=== PATIENT | male | born 1960 | race Hispanic/Latino ===

== ENCOUNTER 2016-09-08 11:23 | Emergency (ER) | payer OTHER ==
[2016-09-08 11:31] VITALS: BMI 29.8
[2016-09-08 11:36] VITALS: TEMP 97.9
[2016-09-08] MEDS ORDERED: Sodium Chloride 0.9% 1,000 ML IV STA (11:46)
--- NOTE | 2016-09-08 11:51 | ED PDOC ---
Arrival/HPI - General Chief Complaint: Male Genitourinary Time Seen by Provider: 09/08/16 11:46 Historian: Patient - History of Present Illness Narrative History of Present Illness (Text): 09/08/16 11:40 Cristobal Acosta is a 55 year old male, whose past medical history includes kidney stones, who presents to the emergency department complaining of dysuria for 10 days. Patient describes experiencing a burning sensation while urinating. Patient also indicates that he feels right-sided flank pain for 4 days. Patient' s notes that patient has experienced kidney stones before but patient is unsure if symptoms feel similar. Patient endorses he took 2 tablets of Augmentin yesterday and today. Patient denies any fever, vomiting, or any other complaint at this time. PMD: Dr. Francie Garcia Time/Duration: > week Symptom Onset: Gradual Symptom Course: Unchanged Severity Level: Mild Activities at Onset: Light Context: Home Past Medical History - Provider Review Nursing Documentation Reviewed: Yes - Infectious Disease Hx of Infectious Diseases: None - Cardiac Hx Cardiac Disorders: No - Pulmonary Hx Respiratory Disorders: No - Neurological Hx Neurological Disorder: No - HEENT Hx HEENT Disorder: No - Renal Hx Renal Disorder: Yes Hx Kidney Stones: Yes (x2) Other/Comment: one kidney stone surgically removed, one passed on its own - Endocrine/Metabolic Hx Endocrine Disorders: No - Hematological/Oncological Hx Blood Disorders: No - Integumentary Hx Dermatological Disorder: No - Musculoskeletal/Rheumatological Hx Falls: No - Gastrointestinal Hx Gastrointestinal Disorders: No - Genitourinary/Gynecological Hx Genitourinary Disorders: No - Psychiatric Hx Psychophysiologic Disorder: No Hx Substance Use: No - Surgical History Other/Comment: kidney stone removal - Anesthesia Hx Anesthesia: Yes Hx Anesthesia Reactions: No Family/Social History - Physician Review Nursing Documentation Reviewed: Yes Family/Social History: No Known Family HX Smoking Status: Never Smoked Hx Alcohol Use: No Hx Substance Use: No Allergies/Home Meds Allergies/Adverse Reactions: Allergies No Known Allergies Allergy (Verified 09/08/16 11:30) Home Medications: Home Meds Medication Instructions Recorded Confirmed Amoxicillin/Clavulanate [Augmentin 1 tab PO BID 09/08/16 09/08/16 500 MG-125 MG Tab] Ibuprofen [Advil] 200 g PO PRN PRN 09/08/16 09/08/16 Review of Systems - Physician Review All systems were reviewed & negative as marked: Yes - Review of Systems Constitutional: absent: Fevers, Night Sweats Eyes: absent: Vision Changes ENT: absent: Hearing Changes Respiratory: absent: SOB, Cough Cardiovascular: absent: Chest Pain Gastrointestinal: absent: Abdominal Pain Genitourinary Male: Dysuria (burning) Musculoskeletal: Back Pain (right-sided flank pain) Skin: absent: Rash, Pruritis Neurological: absent: Headache, Dizziness Endocrine: absent: Diaphoresis, Polyuria Physical Exam - Physical Exam Narrative Physical Exam (Text): Constitutional: No acute distress. Head: Normocephalic. Atraumatic. Eyes: PERRL. ENT: Moist mucous membranes. Neck: Supple. Cardiovascular: Regular rate. Chest: No tenderness. Respiratory: Clear to auscultation bilaterally. GI: Soft. Nontender. Nondistended. Exam: No testicular tenderness. No swelling. No discharge. Positive Circumcision. Back: No CVA tenderness. Musculoskeletal: No tenderness or swelling of extremities. Skin: No rash. Neurologic: Alert, no focal deficit. Vital Signs Reviewed: Yes Vital Signs Temp Pulse Resp BP Pulse Ox 09/08/16 14:45 82 16 128/82 98 09/08/16 11:35 97.9 F 80 19 124/73 99 Temperature: Afebrile Blood Pressure: Normal Pulse: Regular Respiratory Rate: Normal Appearance: Positive for: Well-Appearing, Non-Toxic, Comfortable Pain Distress: None Mental Status: Positive for: Alert and Oriented X 3 Medical Decision Making ED Course and Treatment: 09/08/16 11:40 Impression: 55 year old male complaining of dysuria for 10 days and right-sided flank pain for 4 days. Differential Diagnosis included but are not limited to: UTI vs. Kidney stone vs. STD Plan: -- Abdomen and Pelvis CT -- Urine Culture and Urinalysis -- Labs -- IV Fluids -- Reassess and disposition Prior Visits: Notes and results from previous visits were reviewed. Patient last seen in the ED on 01/17/15 for left-sided flank pain for 1 day. Patient was admitted to hospitalist care for further evaluation. Progress Notes: 09/08/16 14:09 CT Abdomen and Pelvis with contrast Dictator : Sascha Baker MD FINDINGS: LOWER THORAX:Unremarkable. LIVER:Unremarkable. No gross lesion or ductal dilatation. GALLBLADDER AND BILE DUCTS:Unremarkable. PANCREAS:Unremarkable. No gross lesion or ductal dilatation. SPLEEN:Unremarkable. ADRENALS:Unremarkable. No mass. KIDNEYS AND URETERS:There is a 3 mm stone in the left distal ureter near the UVJ. There is no evidence of hydronephrosis. There is a nonobstructing 3 mm stone in the right kidney VASCULATURE:Unremarkable. No aortic aneurysm. BOWEL:Unremarkable. No obstruction. No gross mural thickening. APPENDIX:Normal appendix. PERITONEUM:Unremarkable. No free fluid. No free air. LYMPH NODES:Unremarkable. No enlarged lymph nodes. BLADDER:Unremarkable. REPRODUCTIVE:Unremarkable. BONES:No acute fracture. OTHER FINDINGS:None. IMPRESSION: 3 mm stone in the left distal ureter without hydronephrosis. 3 mm nonobstructing stone in the right kidney UA shows no evidence of UTI. Urology follow up, return to ER for worsening pain , fever, chills, dyspnea, or any other problem. - Lab Interpretations Lab Results: 09/08/16 12:00 09/08/16 12:00 Lab Results 09/08/16 12:00: Sodium 139, Potassium 4.2, Chloride 105, Carbon Dioxide 26, Anion Gap 12, BUN 27 H, Creatinine 0.9, Est GFR ( Amer) > 60, Est GFR ( Non-Af Amer) > 60, Random Glucose 92, Calcium 9.1, Total Bilirubin 0.6, AST 23, ALT 35, Alkaline Phosphatase 75, Total Protein 6.2, Albumin 3.8, Globulin 2.4, Albumin/Globulin Ratio 1.6 09/08/16 12:00: Urine Color Yellow, Urine Appearance Clear, Urine pH 6.0, Ur Specific Hessel >= 1.030, Urine Protein 30 H, Urine Glucose (UA) Negative, Urine Ketones Negative, Urine Blood Large H, Urine Nitrate Negative, Urine Bilirubin Negative, Urine Urobilinogen 0.2, Ur Leukocyte Esterase Negative, Urine RBC Tntc, Urine WBC 0 - 2, Ur Epithelial Cells 0 - 2, Urine Bacteria Few 09/08/16 12:00: WBC 3.7 L D, RBC 5.13, Hgb 13.9 L, Hct 40.9 L, MCV 79.7 L, MCH 27.1, MCHC 34.0, RDW 13.6, Plt Count 96 L, MPV 10.1, Gran % 49.9 L, Lymph % ( Auto) 36.8 H, [place] % (Auto) 11.6 H, Eos % (Auto) 1.4 L, Baso % (Auto) 0.3, Gran # 1.85, Lymph # 1.4, [place] # 0.4, Eos # 0.1, Baso # 0.01 I have reviewed the lab results: Yes - RAD Interpretation Radiology Orders: 09/08/16 11:53 ABD & PELVIS IV CONTRAST ONLY [CT] Stat - Medication Orders Current Medication Orders: Discontinued Medications Sodium Chloride (Sodium Chloride 0.9%) 1,000 mls @ 999 mls/hr IV .Q1H1M STA Stop: 09/08/16 12:46 Last Admin: 09/08/16 12:09 Dose: 999 mls/hr Iohexol (Omnipaque 350 150 Ml) Confirm Administered Dose 150 ml .ROUTE .STK-MED ONE Stop: 09/08/16 13:09 Ketorolac Tromethamine (Toradol) 30 mg IVP STAT STA Stop: 09/08/16 14:08 Last Admin: 09/08/16 14:43 Dose: 30 mg - Scribe Statement The provider has reviewed the documentation as recorded by the Arlette Hedrick Provider Scribe Attestation: All medical record entries made by the Arlette were at my direction and personally dictated by me. I have reviewed the chart and agree that the record accurately reflects my personal performance of the history, physical exam, medical decision making, and the department course for this patient. I have also personally directed, reviewed, and agree with the discharge instructions and disposition. Disposition/Present on Arrival - Present on Arrival Any Indicators Present on Arrival: No History of DVT/PE: No History of Uncontrolled Diabetes: No Urinary Catheter: No History of Decub. Ulcer: No History Surgical Site Infection Following: None - Disposition Have Diagnosis and Disposition been Completed?: Yes Diagnosis: Kidney stone Disposition: HOME/ ROUTINE Disposition Time: 14:07 Patient Plan: Discharge Condition: STABLE Discharge Instructions (ExitCare): Kidney Stones (ED) Prescriptions: Ibuprofen [Motrin] 600 mg PO Q6 #25 tab Ondansetron ODT [Zofran ODT] 4 mg PO Q8 #12 odt Tamsulosin [Flomax] 0.4 mg PO DAILY #5 cap Referrals: Jd Matos MD [Staff Provider] - Follow up with primary
[2016-09-08 12:30] LABS: BASO # 0.01 K/mm3 (0.0-2.0); BASO % 0.3 % (0.0-3.0); EOS # 0.1 (0.0-0.7); EOS % 1.4 % (1.5-5.0); GRAN # 1.85 (1.4-6.5); GRAN % 49.9 % (50.0-68.0); HEMOGLOBIN 13.9 gm/dL (14.0-18.0); LYMPH # 1.4 (1.2-3.4); LYMPH % 36.8 % (22.0-35.0); MEAN CELL VOLUME 79.7 fL (80.0-105.0); MEAN CORPUSCULAR HEMOGLOBIN 27.1 pg (25.0-35.0); MEAN PLATELET VOLUME 10.1 fl (7.0-11.0); MONO # 0.4 (0.1-0.6); MONO % 11.6 % (1.0-6.0); PLATELET COUNT 96 10^3/uL (120.0-450.0); RBC 5.13 10^6/uL (3.5-6.1); RED CELL DISTRIBUTION WIDTH 13.6 % (11.5-14.5); WHITE BLOOD COUNT 3.7 10^3/ul (4.5-11.0)
[2016-09-08 12:31] LABS: URINE BILIRUBIN NEGATIVE (NEGATIVE); URINE BLOOD LARGE (NEGATIVE); URINE GLUCOSE (UA) NEGATIVE (NEGATIVE); URINE LEUKOCYTE ESTERASE NEGATIVE Leu/uL (NEGATIVE); URINE NITRATE NEGATIVE (NEGATIVE); URINE PROTEIN 30 mg/dL (<30 mg/dL); URINE UROBILINOGEN 0.2 E.U./dL (<1 E.U./dL)
[2016-09-08 12:36] LABS: URINE APPEARANCE CLEAR (CLEAR); URINE COLOR YELLOW (YELLOW)
[2016-09-08 12:40] LABS: ALB/GLOB RATIO 1.6 (1.1-1.8); ALBUMIN 3.8 g/dL (3.0-4.8); ALT/SGPT 35 U/L (7-56); AST/SGOT 23 U/L (15-59); BLOOD UREA NITROGEN 27 mg/dL (7-21); CALCIUM 9.1 mg/dL (8.4-10.5); GFR AFRICAN-AMERICAN > 60; GFR NON-AFRICAN AMERICAN > 60
[2016-09-08 12:43] LABS: URINE BACTERIA FEW (NEG); URINE EPITHELIAL CELLS 0 - 2 /hpf (0-5); URINE RBC TNTC /hpf (0-2); URINE WBC 0 - 2 /hpf (0-6)
--- NOTE | 2016-09-08 14:05 | CT ---
PROCEDURE: CT Abdomen and Pelvis with contrast HISTORY: dysuria, flank pain COMPARISON: None. TECHNIQUE: Contrast dose: 150 cc of Omni 350 Radiation dose: Total exam DLP = 660 mGy-cm. This CT exam was performed using one or more of the following dose reduction techniques: Automated exposure control, adjustment of the mA and/or kV according to patient size, and/or use of iterative reconstruction technique. FINDINGS: LOWER THORAX: Unremarkable. LIVER: Unremarkable. No gross lesion or ductal dilatation. GALLBLADDER AND BILE DUCTS: Unremarkable. PANCREAS: Unremarkable. No gross lesion or ductal dilatation. SPLEEN: Unremarkable. ADRENALS: Unremarkable. No mass. KIDNEYS AND URETERS: There is a 3 mm stone in the left distal ureter near the UVJ. There is no evidence of hydronephrosis. There is a nonobstructing 3 mm stone in the right kidney VASCULATURE: Unremarkable. No aortic aneurysm. BOWEL: Unremarkable. No obstruction. No gross mural thickening. APPENDIX: Normal appendix. PERITONEUM: Unremarkable. No free fluid. No free air. LYMPH NODES: Unremarkable. No enlarged lymph nodes. BLADDER: Unremarkable. REPRODUCTIVE: Unremarkable. BONES: No acute fracture. OTHER FINDINGS: None. IMPRESSION: 3 mm stone in the left distal ureter without hydronephrosis. 3 mm nonobstructing stone in the right kidney
[2016-09-08 14:48] VITALS: BP 128/82; PULSE 82; RESP 16; O2SAT 98
== END 2016-09-08 14:48 | disposition home or self-care (01) ==
LOC: ED 11:23
DX: N20.0 Calculus of kidney (principal)
CPT/HCPCS: 74177; 80053; 81001; 85025; 87086; 96374; 99284; J1885; J7040; Q9967

== ENCOUNTER 2017-10-06 19:39 | Observation (INO) | payer OTHER ==
[2017-10-06 19:49] VITALS: BMI 29.9
--- NOTE | 2017-10-06 21:03 | ED PDOC ---
Arrival/HPI <Franck Montana - Last Filed: 10/06/17 22:57> - General Historian: Associate Publisher (History provided by remote audio translation service, shingler number [id number]) EM Caveat: Language Barrier ([place] language Croatian) - History of Present Illness Time/Duration: 24 hours Symptom Onset: Sudden Symptom Course: Unchanged Quality: Burning Severity Level: 3 Activities at Onset: Rest <Miguel Angel Garvey - Last Filed: 10/07/17 05:38> - General Chief Complaint: Chest Pain Time Seen by Provider: 10/06/17 19:40 - History of Present Illness Narrative History of Present Illness (Text): PGY-[address] [place] Mr. Jain is a 56 year old male who presents with pain in his chest and arm. The patient states that he woke up this morning with pain in his left chest/ axilla and that later on in the day the pain began to move down his arm to the elbow. The pain is a burning pain and is worse when lifting himself out of a bed or chair with his arms, better at rest. He did not take any medication for the pain. The patient also states he has noticed having some difficulty catching a deep breath. The patient states he had an echocardiogram done about 5-6 months ago for difficulty breathing which was normal. 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 Pt denies having any sick contacts, recent history of travel or hospitalization. The patient does also state he has been having some pain in his L flank today similar to when he has had kidney stones in the past, though this is not his reason for presenting to the ED. He notes mild burning with urination, but urine is yellow with no blood. Pt denies any back pain, neck pain, fevers, chills, nausea, vomiting, pleuritic pain. Patient has never smoked, does not drink alcohol, does not taking any medications for high blood pressure other cardiac issues. (Miguel Angel Garvey) Past Medical History - Provider Review Nursing Documentation Reviewed: Yes - Infectious Disease Hx of Infectious Diseases: None - Cardiac Hx Cardiac Disorders: No - Pulmonary Hx Respiratory Disorders: No - Neurological Hx Neurological Disorder: No - HEENT Hx HEENT Disorder: No - Renal Hx Renal Disorder: Yes Hx Kidney Stones: Yes (x2) Other/Comment: one kidney stone surgically removed, one passed on its own - Endocrine/Metabolic Hx Endocrine Disorders: No - Hematological/Oncological Hx Blood Disorders: No - Integumentary Hx Dermatological Disorder: No - Musculoskeletal/Rheumatological Hx Falls: No - Gastrointestinal Hx Gastrointestinal Disorders: No - Genitourinary/Gynecological Hx Genitourinary Disorders: No - Psychiatric Hx Psychophysiologic Disorder: No Hx Substance Use: No - Surgical History Other/Comment: kidney stone removal - Anesthesia Hx Anesthesia: Yes Hx Anesthesia Reactions: No <Miguel Angel Garvey - Last Filed: 10/07/17 05:38> Family/Social History - Physician Review Nursing Documentation Reviewed: Yes Family/Social History: Unknown Family HX Smoking Status: Never Smoked Hx Alcohol Use: No Hx Substance Use: No <Miguel Angel Garvey - Last Filed: 10/07/17 05:38> Allergies/Home Meds <Franck Montana - Last Filed: 10/06/17 22:57> <Miguel Angel Garvey - Last Filed: 10/07/17 05:38> Allergies/Adverse Reactions: Allergies No Known Allergies Allergy (Verified 10/06/17 19:49) Home Medications: Home Meds Medication Instructions Recorded Confirmed Amoxicillin/Clavulanate [Augmentin 1 tab PO BID 09/08/16 09/08/16 500 MG-125 MG Tab] Ibuprofen [Advil] 200 g PO PRN PRN 09/08/16 09/08/16 Review of Systems - Review of Systems Constitutional: Normal. absent: Fatigue, Fevers Eyes: Normal. absent: Vision Changes, Photophobia ENT: Normal. absent: Sore Throat, Rhinorrhea Respiratory: Other (+some difficulty taking a deep breath). absent: Cough, Sputum, Wheezing Cardiovascular: Chest Pain. absent: Palpitations, Calf Pain, FRIEDMAN Gastrointestinal: Normal. absent: Abdominal Pain, Constipation, Diarrhea Genitourinary Male: Dysuria. absent: Frequency, Hematuria Musculoskeletal: Other (+Pain chest/arm). absent: Back Pain, Neck Pain Skin: Normal. absent: Rash, Pruritis Neurological: Normal. absent: Headache, Dizziness Psychiatric: Normal. absent: Anxiety, Depression <Miguel Angel Garvey - Last Filed: 10/07/17 05:38> Physical Exam - Systems Exam Head: Present: Atraumatic, Normocephalic Pupils: Present: PERRL Extroacular Muscles: Present: EOMI Conjunctiva: Present: Normal Mouth: Present: Moist Mucous Membranes Pharnyx: Present: Normal. No: ERYTHEMA, EXUDATE Nose (External): Present: Atraumatic Respiratory/Chest: Present: Clear to Auscultation, Good Air Exchange, Tender to Palpation (+Reproducible pain in axilla), Other (Not reproducible with lifting arms overhead). No: Respiratory Distress, Accessory Muscle Use, Wheezes, Decreased Breath Sounds, Retracting Cardiovascular: Present: Regular Rate and Rhythm, Normal S1, S2, Peripheal Pulses Present. No: Murmurs, Tachycardic, Bradycardic Abdomen: Present: Normal Bowel Sounds. No: Tenderness, Distention, Peritoneal Signs, Rebound, Guarding Back: Present: Normal Inspection. No: CVA Tenderness, Paraspinal Tenderness Upper Extremity: Present: Normal Inspection, Normal ROM, NORMAL PULSES. No: Cyanosis, Edema, Tenderness, Swelling, Erythema Lower Extremity: Present: Normal Inspection, NORMAL PULSES. No: Edema, CALF TENDERNESS Neurological: Present: GCS=15, CN II-XII Intact, Speech Normal, Motor Func Grossly Intact, Normal Sensory Function Skin: Present: Warm, Dry, Normal Color. No: Rashes Psychiatric: Present: Alert, Oriented x 3, Normal Insight, Normal Concentration <Miguel Angel Garvey - Last Filed: 10/07/17 05:38> Vital Signs Temp Pulse Resp BP Pulse Ox 10/06/17 23:15 98.2 F 65 16 122/69 100 10/06/17 21:51 66 16 119/66 100 10/06/17 19:50 98.2 F 68 16 128/62 100 Medical Decision Making - Lab Interpretations I have reviewed the lab results: Yes - RAD Interpretation Clinical Trials Assistant: ED Physician - EKG Interpretation Interpreted by ED Physician: Yes Type: 12 lead EKG <Franck Montana - Last Filed: 10/06/17 22:57> - Lab Interpretations I have reviewed the lab results: Yes - RAD Interpretation Clinical Trials Assistant: ED Physician - EKG Interpretation Interpreted by ED Physician: Yes <Miguel Angel Garvey - Last Filed: 10/07/17 05:38> ED Course and Treatment: Impression: Pt seen and evaluated with medical staff physician. Aware and agree with HPI, clinical findings, plan, and management. Pt, whose past medical history includes kidney stones, presented for left-sided chest pain radiating down his left arm and some shortness of breath. Plan: -- EKG -- Chest X-ray -- Labs, cardiac enzymes, D-dimer -- UA -- Reassess and disposition 10/06/17 22:03 Case discussed with medical staff physician international account manager, who is aware and agrees with plan. 10/06/17 22:[address] Lynnette Webb, who is aware and agrees with plan. Accepts pt in to hospitalist service. Pt will go to remote telemetry observation for chest pain. (Franck Montana) 1) MSK chest pain, rule out IN, PE: * EKG * CBC, CMP, Coags, D-dimer * CXR portable * CK/Troponins * UA (Miguel Angel Garvey) - Lab Interpretations Narrative Lab Interpretation (Text): 10/06/17 21:34 CBC, CMP, Coags- no acute abnormalities. Troponin negative x1, D-dimer negative , coags WNL UA pending (Miguel Angel Garvey) Lab Results: 10/06/17 20:54 10/06/17 20:54 Lab Results 10/06/17 20:54: PT 11.3, INR 0.99, APTT 30.5, D-Dimer, Quantitative < 200 10/06/17 20:54: Sodium 142, Potassium 4.0, Chloride 105, Carbon Dioxide 29, Anion Gap 12, BUN 18, Creatinine 1.0, Est GFR ( Amer) > 60, Est GFR (Non- Af Amer) > 60, Random Glucose 95, Calcium 9.1, Magnesium 2.1, Total Bilirubin 0.5, AST 28, ALT 28, Alkaline Phosphatase 69, Lactate Dehydrogenase 558, Total Creatine Kinase 109, Troponin I < 0.01, Total Protein 6.4, Albumin 4.0, Globulin 2.4, Albumin/Globulin Ratio 1.7 10/06/17 20:54: WBC 4.9 D, RBC 5.05, Hgb 13.6 L, Hct 39.3 L, MCV 77.8 L, MCH 26.9, MCHC 34.6, RDW 13.7, Plt Count 117 L, MPV 10.1, Gran % 44.7 L, Lymph % ( Auto) 44.9 H, [place] % (Auto) 8.8 H, Eos % (Auto) 1.4 L, Baso % (Auto) 0.2, Gran # 2.19, Lymph # (Auto) 2.2, [place] # (Auto) 0.4, Eos # (Auto) 0.1, Baso # (Auto) 0.01 - RAD Interpretation Narrative RAD Interpretations (Text): CXR: No evidence of acute pathology 10/06/17 22:03 (Miguel Angel Garvey) Radiology Orders: 10/06/17 20:45 CHEST PORTABLE [RAD] Stat - EKG Interpretation EKG Interpretation (Text): 10/06/17 21:18 Normal sinus rhythm, no ST or T changes, normal EKG (Miguel Angel Garvey) - Medication Orders Current Medication Orders: Acetaminophen (Tylenol 325mg Tab) 650 mg PO Q6H PRN PRN Reason: Pain, moderate (4-7) Al Hydrox/Mg Hydrox/Simethicone (Maalox Plus 30 Ml) 30 ml PO DAILY PRN PRN Reason: Indigestion / Heartburn Aspirin (Ecotrin) 81 mg PO DAILY JACINTO Enoxaparin Sodium (Lovenox) 40 mg SC DAILY JACINTO PRN Reason: Protocol Pantoprazole Sodium (Protonix Inj) 40 mg IVP DAILY [facility] / FRANCHISE SALES MANAGER / Resident Statement / has reviewed & agrees with the documentation as recorded. ADOLFO has examined the patient and agrees with the treatment plan. <Franck Montana - Last Filed: 10/06/17 22:57> Disposition/Present on Arrival <Franck Montana - Last Filed: 10/06/17 22:57> - Present on Arrival Any Indicators Present on Arrival: No History of DVT/PE: No History of Uncontrolled Diabetes: No Urinary Catheter: No History of Decub. Ulcer: No History Surgical Site Infection Following: None - Disposition Have Diagnosis and Disposition been Completed?: Yes Disposition Time: 05:36 <Miguel Angel Garvey - Last Filed: 10/07/17 05:38> - Disposition Diagnosis: Chest pain Disposition: HOSPITALIZED Condition: IMPROVED
[2017-10-06 21:10] LABS: BASO # 0.01 K/mm3 (0.0-2.0); BASO % 0.2 % (0.0-3.0); EOS # 0.1 (0.0-0.7); EOS % 1.4 % (1.5-5.0); GRAN # 2.19 (1.4-6.5); GRAN % 44.7 % (50.0-68.0); HEMOGLOBIN 13.6 g/dL (14.0-18.0); LYMPH # 2.2 (1.2-3.4); LYMPH % 44.9 % (22.0-35.0); MEAN CELL VOLUME 77.8 fl (80.0-105.0); MEAN CORPUSCULAR HEMOGLOBIN 26.9 pg (25.0-35.0); MEAN CORPUSCULAR HGB CONC 34.6 g/dl (31.0-37.0); MEAN PLATELET VOLUME 10.1 fl (7.0-11.0); MONO # 0.4 (0.1-0.6); MONO % 8.8 % (1.0-6.0); RBC 5.05 10^6/uL (3.5-6.1); RED CELL DISTRIBUTION WIDTH 13.7 % (11.5-14.5); WHITE BLOOD COUNT 4.9 10^3/ul (4.5-11.0)
[2017-10-06 21:15] LABS: ALB/GLOB RATIO 1.7 (1.1-1.8); CALCIUM 9.1 mg/dL (8.4-10.5); GFR AFRICAN-AMERICAN > 60; GFR NON-AFRICAN AMERICAN > 60
[2017-10-06 21:18] LABS: INR 0.99; PARTIAL THROMBOPLASTIN TIME 30.5 Seconds (25.1-36.5); PROTHROMBIN TIME 11.3 SECONDS (9.4-12.5)
[2017-10-06 21:23] LABS: D DIMER < 200 ng/mlDDU (0-243)
[2017-10-06 21:27] LABS: TROPONIN I < 0.01 ng/mL
[2017-10-06 21:28] LABS: ALT/SGPT 28 U/L (7-56); AST/SGOT 28 U/L (17-59); BLOOD UREA NITROGEN 18 mg/dL (7-21)
[2017-10-06] MEDS ORDERED: Alum-Mag Hydrox-Simethicone Susp (30 mL) PO PRN (23:07)
--- NOTE | 2017-10-07 00:17 | CP.PCM.HP ---
History of Present Illness - History of Present Illness History of Present Illness: Sanna Sharp D.O. PGY-1, HISTORY & PHYSICAL NOTE FOR HOSPITALIST TEAM CC: Chest pain since yesterday afternoon 56 y/o kiswahili speaking M with no significant pmhx presents to ED with pain in chest & L arm. The patient states that he woke up this morning with 5/10 severity pain in his left chest/axilla and that later on in the day the pain began to move down his arm to the elbow. The pain is a burning pain thats worse when lifting himself out of a bed or chair with his arms, better at rest. He also states the pain is worse upon deep palpation. He did not take any medication for the pain. The patient also states he has noticed having some difficulty catching a deep breath. The patient states he had an echocardiogram done about 5-6 months ago for difficulty breathing which was normal. 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 Pt denies having any sick contacts, recent history of travel or hospitalization. The patient does also states he has been having some pain in his L flank today similar to when he has had kidney stones in the past, though this is not his reason for presenting to the ED. He also endorses epigastric abdominal pain, but denies cough, bitterness taste in his mouth or regurgitation. He notes mild burning with urination, but urine is yellow with no blood. Patient has never smoked, does not drink alcohol, does not taking any medications for hypertension other cardiac issues. Pt denies any fevers, chills, cough, headache, dizziness, diophoresis, back pain, neck pain, nausea, vomiting, pleuritic pain. PMD: Dr. Garcia PMH: Nephrolithiasis PSH: Denies SH: Denies smoking, alcohol, illicit drug use FH: Father- denies, Mother- DM2 Meds: Denies Present on Admission - Present on Admission Any Indicators Present on Admission: No Review of Systems - Review of Systems All systems: reviewed and no additional remarkable complaints except (as per HPI , otherwise negative) Past Patient History - Infectious Disease Hx of Infectious Diseases: None - Past Social History Smoking Status: Never Smoked - CARDIAC Hx Cardiac Disorders: No - PULMONARY Hx Respiratory Disorders: No - NEUROLOGICAL Hx Neurological Disorder: No - HEENT Hx HEENT Problems: No - RENAL Hx Chronic Kidney Disease: Yes Hx Kidney Stones: Yes (x2) Other/Comment: one kidney stone surgically removed, one passed on its own - ENDOCRINE/METABOLIC Hx Endocrine Disorders: No - HEMATOLOGICAL/ONCOLOGICAL Hx Blood Disorders: No - INTEGUMENTARY Hx Dermatological Problems: No - MUSCULOSKELETAL/RHEUMATOLOGICAL Hx Falls: No - GASTROINTESTINAL Hx Gastrointestinal Disorders: No - GENITOURINARY/GYNECOLOGICAL Hx Genitourinary Disorders: No - PSYCHIATRIC Hx Psychophysiologic Disorder: No Hx Substance Use: No - SURGICAL HISTORY Other/Comment: kidney stone removal - ANESTHESIA Hx Anesthesia: Yes Hx Anesthesia Reactions: No Meds Allergies/Adverse Reactions: Allergies Allergy/AdvReac Type Severity Reaction Status Date / Time No Known Allergies Allergy Verified 10/06/17 19:49 Physical Exam - Constitutional Appears: Well, Non-toxic, No Acute Distress - Head Exam Head Exam: ATRAUMATIC, NORMAL INSPECTION - Eye Exam Eye Exam: EOMI, Normal appearance - ENT Exam ENT Exam: Mucous Membranes Moist, Normal Exam - Neck Exam Neck exam: Positive for: Normal Inspection - Respiratory Exam Respiratory Exam: Clear to Auscultation Bilateral, NORMAL BREATHING PATTERN - Cardiovascular Exam Cardiovascular Exam: REGULAR RHYTHM, +S1, +S2 Additional comments: Tenderness to palpation noted along L sternal border, and along 4th/5th midclavicular ribs to mixaxillary region. - GI/Abdominal Exam GI & Abdominal Exam: Soft, Tenderness (mild epigastric tenderness to deep palpation). absent: Distended, Rebound, Rigid - Extremities Exam Extremities exam: Positive for: normal inspection. Negative for: calf tenderness Additional comments: musculoskeletal tenderness along L bicep - Neurological Exam Neurological exam: Alert, CN II-XII Intact, Oriented x3 - Psychiatric Exam Psychiatric exam: Normal Affect, Normal Mood - Skin Skin Exam: Dry, Intact, Warm Results - Vital Signs Recent Vital Signs: Last Vital Signs Temp 98.2 F 10/06/17 23:29 Pulse 62 10/06/17 23:29 Resp 16 10/06/17 23:29 BP 122/69 10/06/17 23:29 Pulse Ox 100 10/06/17 23:29 - Labs Result Diagrams: 10/06/17 20:54 10/06/17 20:54 Labs: Laboratory Results - last 24 hr 10/06/17 23:00 Phosphorus 2.9 Assessment & Plan - Assessment and Plan (Free Text) Assessment: 56 y/o M with pmhx of nephrolithiasis admitted for chest pain to rule out ACS Plan: Chest Pain Likely secondary to musculoskeletal dysfunction Rule out ACS. Trend troponin q6H, trend EKG q6H, F/u Lipid Panel F/u Hemoglobin A1C Consult Cardiology: Dr. Levy Start acetaminophen 650mg q6H prn Start aspirin 81mg daily Heart healthy diet Abdominal pain Likely secondary to gastritis Start Maalox 30mL daily prn Hx of Renal calculi Currently asymptomatic monitor for signs of progression DVT/GI ppx: Lovenox/Protonix Case seen, discussed and reviewed with attending physician, Dr. Webb
[2017-10-07 00:32] LABS: PH,URINE 6.5 (4.7-8.0); URINE BILIRUBIN NEGATIVE (NEGATIVE); URINE BLOOD NEGATIVE (NEGATIVE); URINE GLUCOSE (UA) NEGATIVE (NEGATIVE); URINE LEUKOCYTE ESTERASE NEGATIVE Leu/uL (NEGATIVE); URINE PROTEIN NEGATIVE mg/dL (<30 mg/dL); URINE UROBILINOGEN 0.2 E.U./dL (<1 E.U./dL)
[2017-10-07 00:34] LABS: URINE APPEARANCE CLEAR (CLEAR); URINE COLOR YELLOW (YELLOW)
[2017-10-07 07:10] LABS: BASO # 0.01 K/mm3 (0.0-2.0); BASO % 0.2 % (0.0-3.0); EOS # 0.1 (0.0-0.7); EOS % 1.8 % (1.5-5.0); GRAN # 1.85 (1.4-6.5); GRAN % 42.6 % (50.0-68.0); LYMPH # 2.1 (1.2-3.4); LYMPH % 47.1 % (22.0-35.0); MEAN CELL VOLUME 77.8 fl (80.0-105.0); MEAN CORPUSCULAR HEMOGLOBIN 26.8 pg (25.0-35.0); MEAN CORPUSCULAR HGB CONC 34.5 g/dl (31.0-37.0); MEAN PLATELET VOLUME 9.9 fl (7.0-11.0); MONO # 0.4 (0.1-0.6); MONO % 8.3 % (1.0-6.0); RBC 5.22 10^6/uL (3.5-6.1); RED CELL DISTRIBUTION WIDTH 13.8 % (11.5-14.5); WHITE BLOOD COUNT 4.4 10^3/ul (4.5-11.0)
[2017-10-07 07:25] LABS: ALB/GLOB RATIO 1.6 (1.1-1.8); ALBUMIN 3.7 g/dL (3.0-4.8); ALT/SGPT 28 U/L (7-56); AST/SGOT 19 U/L (17-59); BLOOD UREA NITROGEN 16 mg/dL (7-21); CALCIUM 8.9 mg/dL (8.4-10.5); GFR AFRICAN-AMERICAN > 60; GFR NON-AFRICAN AMERICAN > 60; HDL CHOLESTEROL 31 mg/dL (29-60)
[2017-10-07 07:31] LABS: TROPONIN I < 0.01 ng/mL
[2017-10-07 07:32] LABS: LDL CHOLESTEROL 83 mg/dL (0-129)
[2017-10-07] MEDS: Enoxaparin 40 mg Syringe SC SCH (09:39)
--- NOTE | 2017-10-07 10:59 | RAD ---
Date of service: 10/06/2017 HISTORY: Chest pain COMPARISON: No prior. FINDINGS: LUNGS: No active pulmonary disease. PLEURA: No significant pleural effusion identified, no pneumothorax apparent. CARDIOVASCULAR: Normal. OSSEOUS STRUCTURES: No significant abnormalities. VISUALIZED UPPER ABDOMEN: Normal. OTHER FINDINGS: None. IMPRESSION: No active disease.
--- NOTE | 2017-10-07 14:57 | CON ---
Copied To: Raudel Du MD Attending MD: Raudel Du MD DATE: 10/07/2017 CARDIOLOGY CONSULTATION HISTORY: The patient is a 56-year-old male with no previous cardiac history, who presents with substernal chest discomfort. The symptoms are relieved this morning. The patient's past medical history is notable for history of hypertension. He is followed by a primary care doctor on the outside. No previous myocardial infarction. Denies dyspnea. SOCIAL HISTORY: The patient denies active smoking today. REVIEW OF SYSTEMS: Fourteen-point review of systems was reviewed in detail. The patient is currently asymptomatic. PHYSICAL EXAMINATION: VITAL SIGNS: On physical exam, blood pressure is 129/80, the heart rate is in the 60s. NECK: Negative JVD. LUNGS: Without rales. HEART: Reveals S1, S2. EXTREMITIES: Without edema. LABORATORY DATA: BUN and creatinine are unremarkable. The hemoglobin is 14. Troponins are negative x3. IMPRESSION: 1. New-onset chest pain, which is classic and angina in description. 2. Questionable history of smoking in the past. 3. Hypertension. 4. Intermediate probability for coronary artery disease. PLAN: Given these findings, we will arrange for a stress test in the morning. In the morning, we will transfer the care back to Dr. Levy. Raudel Du MD
--- NOTE | 2017-10-07 15:27 | CARD ---
APPROVED REPORT Date of service: 10/07/2017 EKG Measurement Heart [id number] [place] [id number] <Conclusion> Normal sinus rhythm Normal ECG
--- NOTE | 2017-10-07 16:21 | CARD ---
APPROVED REPORT Date of service: 10/06/2017 EKG Measurement Heart [id number] [place] [id number] <Conclusion> Normal sinus rhythm Normal ECG
[2017-10-08 07:52] VITALS: BP 142/82; PULSE 61; RESP 20; TEMP 97.4; O2SAT 97
--- NOTE | 2017-10-08 08:52 | CP.PCM.PN ---
Subjective - Date & Time of Evaluation Date of Evaluation: 10/08/17 (n) Time of Evaluation: 08:52 - Subjective Subjective: Patient seen and examined at bedside. No overnight events. Patient currently does not have chest pain.He denies any fevers, chills, cough, headache, dizziness, diophoresis, N/V. Objective - Vital Signs/Intake and Output Vital Signs (last 24 hours): Temp Pulse Resp BP Pulse Ox 97.4 F L 61 20 142/82 97 10/08/17 07:52 10/08/17 07:52 10/08/17 07:52 10/08/17 07:52 10/08/17 07:52 Intake and Output: 10/08/17 10/08/17 06:59 18:59 Intake Total 0 Balance 0 - Medications Medications: Current Medications Acetaminophen (Tylenol 325mg Tab) 650 mg PO Q6H PRN PRN Reason: Pain, moderate (4-7) Al Hydrox/Mg Hydrox/Simethicone (Maalox Plus 30 Ml) 30 ml PO DAILY PRN PRN Reason: Indigestion / Heartburn Aspirin (Ecotrin) 81 mg PO DAILY [facility] Last Admin: 10/07/17 09:39 Dose: 81 mg Enoxaparin Sodium (Lovenox) 40 mg SC DAILY [facility] PRN Reason: Protocol Last Admin: 10/07/17 09:39 Dose: 40 mg Pantoprazole Sodium (Protonix Inj) 40 mg IVP DAILY [facility] Last Admin: 10/07/17 09:39 Dose: 40 mg - Labs Labs: 10/07/17 06:30 10/07/17 06:30 PT 11.3 SECONDS (9.4-12.5) 10/06/17 20:54 INR 0.99 10/06/17 20:54 APTT 30.5 Seconds (25.1-36.5) 10/06/17 20:54 - Constitutional Appears: Well - Head Exam Head Exam: ATRAUMATIC, NORMAL INSPECTION, NORMOCEPHALIC - Eye Exam Eye Exam: EOMI, Normal appearance, PERRL Pupil Exam: NORMAL ACCOMODATION, PERRL - ENT Exam ENT Exam: Mucous Membranes Moist, Normal Exam - Neck Exam Neck Exam: Full ROM, Normal Inspection. absent: Lymphadenopathy - Respiratory Exam Respiratory Exam: Clear to Ausculation Bilateral, NORMAL BREATHING PATTERN - Cardiovascular Exam Cardiovascular Exam: REGULAR RHYTHM, +S1, +S2. absent: Murmur - GI/Abdominal Exam GI & Abdominal Exam: Soft, Normal Bowel Sounds. absent: Tenderness - Extremities Exam Extremities Exam: Full ROM, Normal Capillary Refill, Normal Inspection. absent : Joint Swelling, Pedal Edema - Back Exam Back Exam: NORMAL INSPECTION - Neurological Exam Neurological Exam: Alert, Awake, CN II-XII Intact, Normal Gait, Oriented x3 - Psychiatric Exam Psychiatric exam: Normal Affect, Normal Mood - Skin Skin Exam: Dry, Intact, Normal Color, Warm Assessment and Plan - Assessment and Plan (Free Text) Assessment: 56 y/o male with no significant pmhx presents to ED with left sided chest pain that radiates to left axilla, reproducible, change with respiration. Troponin (- )x3, EKG; NSR, no ST changes. Plan: Chest aoain r/o ACS: EKG:NSR @64 Trop - x3 CXR: no active cardiopulmonary changes Cardiac stress test today ASA, Lovenox were not given today.
[2017-10-08] MEDS: Enoxaparin 40 mg Syringe SC SCH (09:27)
--- NOTE | 2017-10-08 14:28 | PN ---
Copied To: Magui Levy MD Attending MD: Magui Levy MD DATE: 10/08/2017 LOCATION: The patient in room 362, bed 1. REASON FOR CONSULTATION: Chest pain. SUBJECTIVE: The patient is chest pain free now, was admitted with some substernal chest discomfort. Denies any chest pain, shortness of breath, palpitation at moment. Sitting comfortably in bed without any cardiac symptoms. PHYSICAL EXAMINATION: VITAL SIGNS: Blood pressure 142/82, respirations 20, pulse 61, temperature 97.4. HEENT: Head is normocephalic. Eyes: Pupils normal. Conjunctivae normal. Nose and throat normal. NECK: JVP low. Carotids equal. THORAX: AP diameter normal. LUNGS: Clear. CARDIOVASCULAR: S1 and S2. ABDOMEN: Soft. No tenderness. No organomegaly. EXTREMITIES: No clubbing. No cyanosis. LABORATORY DATA: WBC 4.4, hemoglobin 14, hematocrit 40.6, platelet 105. Initial platelet on admission 117. Sodium 143, potassium 3.8, BUN 16, creatinine 0.8, random glucose 96. AST, ALT normal. Troponin x3 negative. Total protein, albumin normal. DIAGNOSES: Chest pain, hypertension. PLAN: We will do nuclear stress test today. In the meantime, the patient is on aspirin 81 mg daily, Lovenox 40 mg subcu daily, Protonix 40 daily. We will monitor with you and we will with you. We will monitor blood pressure. If high, we will put on medication. Magui Levy MD
--- NOTE | 2017-10-08 17:15 | CP.PCM.DIS ---
<Abdirahman Holguin - Last Filed: 10/08/17 17:32> Provider - Provider Date of Admission: 10/06/17 22:08 Attending physician: Miranda Kam DO Primary care physician: Francie Garcia MD Consults: Raudel Du M.D Cardiology Time Spent in preparation of Discharge (in minutes): 45 Hospital Course - Lab Results Lab Results: Most Recent Lab Values WBC 4.4 10^3/ul (4.5-11.0) L 10/07/17 06:30 RBC 5.22 10^6/uL (3.5-6.1) 10/07/17 06:30 Hgb 14.0 g/dL (14.0-18.0) 10/07/17 06:30 Hct 40.6 % (42.0-52.0) L 10/07/17 06:30 MCV 77.8 fl (80.0-105.0) L 10/07/17 06:30 MCH 26.8 pg (25.0-35.0) 10/07/17 06:30 MCHC 34.5 g/dl (31.0-37.0) 10/07/17 06:30 RDW 13.8 % (11.5-14.5) 10/07/17 06:30 Plt Count 105 10^3/uL (120.0-450.0) L 10/07/17 06:30 MPV 9.9 fl (7.0-11.0) 10/07/17 06:30 Gran % 42.6 % (50.0-68.0) L 10/07/17 06:30 Lymph % (Auto) 47.1 % (22.0-35.0) H 10/07/17 06:30 [place] % (Auto) 8.3 % (1.0-6.0) H 10/07/17 06:30 Eos % (Auto) 1.8 % (1.5-5.0) 10/07/17 06:30 Baso % (Auto) 0.2 % (0.0-3.0) 10/07/17 06:30 Gran # 1.85 (1.4-6.5) 10/07/17 06:30 Lymph # (Auto) 2.1 (1.2-3.4) 10/07/17 06:30 [place] # (Auto) 0.4 (0.1-0.6) 10/07/17 06:30 Eos # (Auto) 0.1 (0.0-0.7) 10/07/17 06:30 Baso # (Auto) 0.01 K/mm3 (0.0-2.0) 10/07/17 06:30 PT 11.3 SECONDS (9.4-12.5) 10/06/17 20:54 INR 0.99 10/06/17 20:54 APTT 30.5 Seconds (25.1-36.5) 10/06/17 20:54 D-Dimer, Quantitative < 200 ng/mlDDU (0-243) 10/06/17 20:54 Sodium 143 mmol/L (132-148) 10/07/17 06:30 Potassium 3.8 mmol/L (3.6-5.0) 10/07/17 06:30 Chloride 106 mmol/L (98-107) 10/07/17 06:30 Carbon Dioxide 27 mmol/L (21-33) 10/07/17 06:30 Anion Gap 14 (10-20) 10/07/17 06:30 BUN 16 mg/dL (7-21) 10/07/17 06:30 Creatinine 0.8 mg/dl (0.8-1.5) 10/07/17 06:30 Est GFR ( Amer) > 60 10/07/17 06:30 Est GFR (Non-Af Amer) > 60 10/07/17 06:30 Random Glucose 96 mg/dL (70-110) 10/07/17 06:30 Hemoglobin A1c 5.2 % (4.2-6.5) 10/06/17 23:00 Calcium 8.9 mg/dL (8.4-10.5) 10/07/17 06:30 Phosphorus 2.9 mg/dL (2.5-4.5) 10/06/17 23:00 Magnesium 2.1 mg/dL (1.7-2.2) 10/06/17 20:54 Total Bilirubin 0.6 mg/dL (0.2-1.3) 10/07/17 06:30 AST 19 U/L (17-59) 08/12/18 06:30 ALT 28 U/L (7-56) 10/07/17 06:30 Alkaline Phosphatase 76 U/L (38-126) 10/07/17 06:30 Lactate Dehydrogenase 558 U/L (333-699) 10/06/17 20:54 Total Creatine Kinase 109 U/L (35-230) 10/06/17 20:54 Troponin I < 0.01 ng/mL 10/07/17 06:30 Total Protein 6.0 g/dL (5.8-8.3) 10/07/17 06:30 Albumin 3.7 g/dL (3.0-4.8) 10/07/17 06:30 Globulin 2.3 gm/dL 10/07/17 06:30 Albumin/Globulin Ratio 1.6 (1.1-1.8) 10/07/17 06:30 Triglycerides 89 mg/dL (35-160) 10/07/17 06:30 Cholesterol 138 mg/dL (130-200) 10/07/17 06:30 LDL Cholesterol Direct 83 mg/dL (0-129) 10/07/17 06:30 HDL Cholesterol 31 mg/dL (29-60) 10/07/17 06:30 Urine Color Yellow (YELLOW) 10/07/17 00:17 Urine Appearance Clear (CLEAR) 10/07/17 00:17 Urine pH 6.5 (4.7-8.0) 10/07/17 00:17 Ur Specific [place] 1.020 (1.005-1.035) 10/07/17 00:17 Urine Protein Negative mg/dL (<30 mg/dL) 10/07/17 00:17 Urine Glucose (UA) Negative mg/dL (NEGATIVE) 10/07/17 00:17 Urine Ketones Negative mg/dL (NEGATIVE) 10/07/17 00:17 Urine Blood Negative (NEGATIVE) 10/07/17 00:17 Urine Nitrate Negative (NEGATIVE) 10/07/17 00:17 Urine Bilirubin Negative (NEGATIVE) 10/07/17 00:17 Urine Urobilinogen 0.2 E.U./dL (<1 E.U./dL) 10/07/17 00:17 Ur Leukocyte Esterase Negative Adi/uL (NEGATIVE) 10/07/17 00:17 - Hospital Course Hospital Course: Patient presented with chest pain, 5/10 severity pain in his left chest/axilla and that later on in the day the pain began to move down his arm to the elbow. troponin q6H (-) x3 EKG: NSR CXR: no active cardiopulmonary diease aspirin 81mg given daily Lovenox 40 mg daily for DVT ppx given acetaminophen 650mg given q6H prn Lipid Panel normal Cardiology consult Dr Du : new onset chest pain, HTN, questionable smoking history,intermediate probability for CAD Cardiac stress test done by Dr Levy: shows normal results. follow up with PMD for high blood pressure readings. - Date & Time of H&P Date of H&P: 10/08/17 Time of H&P: 13:25 Discharge Exam - Head Exam Head Exam: ATRAUMATIC, NORMAL INSPECTION - Eye Exam Eye Exam: EOMI, Normal appearance, PERRL Pupil Exam: NORMAL ACCOMODATION, PERRL Discharge Plan - Discharge Medications Prescriptions: Aspirin [Ecotrin] 81 mg PO DAILY #30 tabec - Follow Up Plan Condition: IMPROVED Disposition: HOME/ ROUTINE Instructions: Chest Pain (DC), Chest Pain (DC), Chest Pain (GEN) Additional Instructions: Follow up with your primary medical doctor Dr. Garcia in 3-5 days upon discharge Continue home medications as prescribed to you Continue Aspirin 81 mg Take one tab by mouth daily Return to emergency department if symptoms return Referrals: Francie Garcia MD [Primary Care Provider] - <Miranda Kam - Last Filed: 10/09/17 12:36> Provider - Provider Date of Admission: 10/06/17 22:08 Attending physician: Miranda Kam DO Primary care physician: Francie Garcia MD Hospital Course - Lab Results Lab Results: Most Recent Lab Values WBC 4.4 10^3/ul (4.5-11.0) L 10/07/17 06:30 RBC 5.22 10^6/uL (3.5-6.1) 10/07/17 06:30 Hgb 14.0 g/dL (14.0-18.0) 10/07/17 06:30 Hct 40.6 % (42.0-52.0) L 10/07/17 06:30 MCV 77.8 fl (80.0-105.0) L 10/07/17 06:30 MCH 26.8 pg (25.0-35.0) 10/07/17 06:30 MCHC 34.5 g/dl (31.0-37.0) 10/07/17 06:30 RDW 13.8 % (11.5-14.5) 10/07/17 06:30 Plt Count 105 10^3/uL (120.0-450.0) L 10/07/17 06:30 MPV 9.9 fl (7.0-11.0) 10/07/17 06:30 Gran % 42.6 % (50.0-68.0) L 10/07/17 06:30 Lymph % (Auto) 47.1 % (22.0-35.0) H 10/07/17 06:30 [place] % (Auto) 8.3 % (1.0-6.0) H 10/07/17 06:30 Eos % (Auto) 1.8 % (1.5-5.0) 10/07/17 06:30 Baso % (Auto) 0.2 % (0.0-3.0) 10/07/17 06:30 Gran # 1.85 (1.4-6.5) 10/07/17 06:30 Lymph # (Auto) 2.1 (1.2-3.4) 10/07/17 06:30 [place] # (Auto) 0.4 (0.1-0.6) 10/07/17 06:30 Eos # (Auto) 0.1 (0.0-0.7) 10/07/17 06:30 Baso # (Auto) 0.01 K/mm3 (0.0-2.0) 10/07/17 06:30 PT 11.3 SECONDS (9.4-12.5) 10/06/17 20:54 INR 0.99 10/06/17 20:54 APTT 30.5 Seconds (25.1-36.5) 10/06/17 20:54 D-Dimer, Quantitative < 200 ng/mlDDU (0-243) 10/06/17 20:54 Sodium 143 mmol/L (132-148) 10/07/17 06:30 Potassium 3.8 mmol/L (3.6-5.0) 10/07/17 06:30 Chloride 106 mmol/L (98-107) 10/07/17 06:30 Carbon Dioxide 27 mmol/L (21-33) 10/07/17 06:30 Anion Gap 14 (10-20) 10/07/17 06:30 BUN 16 mg/dL (7-21) 10/07/17 06:30 Creatinine 0.8 mg/dl (0.8-1.5) 10/07/17 06:30 Est GFR ( Amer) > 60 10/07/17 06:30 Est GFR (Non-Af Amer) > 60 10/07/17 06:30 Random Glucose 96 mg/dL (70-110) 10/07/17 06:30 Hemoglobin A1c 5.2 % (4.2-6.5) 10/06/17 23:00 Calcium 8.9 mg/dL (8.4-10.5) 10/07/17 06:30 Phosphorus 2.9 mg/dL (2.5-4.5) 10/06/17 23:00 Magnesium 2.1 mg/dL (1.7-2.2) 10/06/17 20:54 Total Bilirubin 0.6 mg/dL (0.2-1.3) 10/07/17 06:30 AST 19 U/L (17-59) 10/07/17 06:30 ALT 28 U/L (7-56) 10/07/17 06:30 Alkaline Phosphatase 76 U/L (38-126) 10/07/17 06:30 Lactate Dehydrogenase 558 U/L (333-699) 10/06/17 20:54 Total Creatine Kinase 109 U/L (35-230) 10/06/17 20:54 Troponin I < 0.01 ng/mL 10/07/17 06:30 Total Protein 6.0 g/dL (5.8-8.3) 10/07/17 06:30 Albumin 3.7 g/dL (3.0-4.8) 10/07/17 06:30 Globulin 2.3 gm/dL 10/07/17 06:30 Albumin/Globulin Ratio 1.6 (1.1-1.8) 10/07/17 06:30 Triglycerides 89 mg/dL (35-160) 10/07/17 06:30 Cholesterol 138 mg/dL (130-200) 10/07/17 06:30 LDL Cholesterol Direct 83 mg/dL (0-129) 10/07/17 06:30 HDL Cholesterol 31 mg/dL (29-60) 10/07/17 06:30 Urine Color Yellow (YELLOW) 10/07/17 00:17 Urine Appearance Clear (CLEAR) 10/07/17 00:17 Urine pH 6.5 (4.7-8.0) 10/07/17 00:17 Ur Specific [place] 1.020 (1.005-1.035) 10/07/17 00:17 Urine Protein Negative mg/dL (<30 mg/dL) 10/07/17 00:17 Urine Glucose (UA) Negative mg/dL (NEGATIVE) 10/07/17 00:17 Urine Ketones Negative mg/dL (NEGATIVE) 10/07/17 00:17 Urine Blood Negative (NEGATIVE) 10/07/17 00:17 Urine Nitrate Negative (NEGATIVE) 10/07/17 00:17 Urine Bilirubin Negative (NEGATIVE) 10/07/17 00:17 Urine Urobilinogen 0.2 E.U./dL (<1 E.U./dL) 10/07/17 00:17 Ur Leukocyte Esterase Negative Adi/uL (NEGATIVE) 10/07/17 00:17 Attending/Attestation - Attestation I have personally seen and examined this patient.: Yes I have fully participated in the care of the patient.: Yes I have reviewed all pertinent clinical information, including history, physical exam and plan: Yes Notes (Text): Patient seen and examined by me with resident at 14:00 10/08/17. Case including discharge plan discussed with resident. Agree with above with following additions/corrections patient is a 56-year-old male with no significant past medical history that presented to the emergency room with chest pain radiating to left arm. Please see H&P for details. Patient was admitted with left-sided chest pain. Pain was reproducible. However , symptoms were described as angina. Cardiology was consulted. Patient was started on ASA. Lipid panel was within normal limits. Hgb A1C was 5.2. Patient was evaluated by cardiology and stress test was ordered. Troponins were within normal limits. Stress test per gray mixing operator showed the patient achieved 97% of predicted heart rate, no chest pain, no STT changes. Nuclear portion of stress test per radiologist showed normal SPECT myocardial perfusion study, normal gated wall motion of left ventricle. Chest pain was resolved. Patient was cleared for discharge by cardiology on baby aspirin. Case was discussed with Dr. Levy, gray mixing operator prior to discharge, patient does not need current follow up with cardiology per gray mixing operator. Patient to follow up with primary care doctor. Patient was also found to have epigastric pain which patient stated was chronic. Patient states he has a history of reflux and takes medication for it. Patient advised to continue medication at home. Patient also found to have a couple of elevated blood pressure readings. Most readings were within normal limits. No medications were started as patient was not consistently hypertensive. Patient advised to follow up outpatient with primary care pressure readings. Patient was feeling much better and was discharged home. On day of discharge, patient stated he was feeling well. Denied any chest pain or shortness of breath. No dizziness. No headaches or lightheadedness. No nausea or vomiting. Patient had mild epigastric pain which he stated was chronic and secondary to his reflux. No fevers or chills. No dysuria. No diarrhea or constipation. Gen: Awake and alert sitting up in bed in no acute distress HEENT: Normocephalic, atraumatic. Extraocular muscles intact, pupils equal reactive. Oropharynx is pink and moist, no pharyngeal erythema or exudate appreciated. Neck is supple. Cardiovascular: Normal rhythm. Normal S1, S2. No murmurs, rubs, or gallops appreciated Pulmonary: Normal respiratory effort. No rhonchi, rales or wheezing appreciated. Gastrointestinal: Soft, mild epigastric tenderness, nondistended, positive bowel sounds all 4 quadrants, no guarding. Musculoskeletal: Normal range of motion all extremities, no calf tenderness, no edema appreciated Central nervous system: AAO x 3. 5/5 muscle strength all extremities. CN 2-12 grossly intact Dermatologic: Skin warm and dry Please see chart for full details. Follow up instructions. Follow up with PMD within 3-5 days. Continue home medications. Take aspirin as prescribed. All instructions explained to patient in detail. Patient both understands and agrees to all instructions. Time spent in discharging the patient including chart review, medication reconciliation, discussion with the patient, front office medical assistant, consultants, and nursing staff was approximately 35 minutes.
--- NOTE | 2017-10-08 21:27 | CARD ---
APPROVED REPORT Date of service: 10/08/2017 Protocol: CARYN Test Type: S[place]am[place] Stress Test Attending Physician: Dr. Magui Levy Referring Physician: Dr. Magui Dubose Test Indications: Chest Pain Height:5 ft 5 in Weight:180lbs Medications: Aspirin, Protonix, Lovenox Medical History: 56 y/o male with a history of htn, chest pain and shortness of breath Target HR: 166 bpm Resting ECG: RSR. Resting Heart Rate: 77 bpm Resting Blood Pressure: 130/70mmHg Submaximum (85%): 141 bpm POST EXERCISE Reason for Termination: Fatigue Target HR: No Max HR: 162 bpm 97% of Maximum Predicted HR: 166 bpm Exercise duration: 10:42 min:sec, 4 Stage Exercise capacity: 12.9METs Max Blood Pressure: 170/60mmHg Blood Pressure response to exercise: normal resting BP - appropriate response Heart Rate response to exercise: appropriate Chest Pain: No, none Angina index: 0 Arrhythmia: No, none ST Change: No, none Deviation: 0 mm INTERPRETATION Stress EKG Conclusion: MYOVIEW NUCLEAR STRESS TEST STOPPED AFTER 10 MINUTES AND 42 SECONDS OF CARYN PROTOCOL DUE TO FATIGUE. PATIENT ACHIEVED 97% OF PREDICTED HEART RATE. NO CHEST PAIN. NO ST-T CHANGES. NUCL;EAR SCAN REPORT PENDING. Signed by Magui Levy Electronically Approved: 10/08/2017 12:56:38 EXAM: Myocardial Perfusion REST/STRESS Stress Test Type: Exercise Treadmill Imaging Protocol The imaging protocol used to acquire images was Rest Tc-99m/stress Tc-99m 1 day Rest Spect myocardial perfusion imaging was performed in supine position 40 minutes following the injection of 10.4 mCi of Tc-99 Myoview. At peak stress, the patient was injected intravenously with 30.4mCi of Tc-99 tetrofosmin after an infusion time of 10 minutes and 42 seconds. Gated Stress Spect was performed 60 minutes after intravenous Tc-99 Myoview injection. The images were gated to evaluate regional wall motion and calculate ventricular ejection fraction.Images were reconstructed using backfilter projection method in short horizontal and verticle long axis. Spect slices were generated. LV Perfusion The quality of the study is good. The left ventricle is normal in size. The right ventricle is unremarkable. The lung uptake is within normal limits. The distribution of tracer reveals normal uptake pattern throughout the LV myocardium on the stress study. The rest myocardial perfusion study shows no significant change. Wall Motion Wall motion study shows good contractility of the left ventricle. LVEF = 70%. Conclusion 1. Normal SPECT myocardial perfusion study. 2. Normal gated wall motion of the left ventricle.
[2017-10-09] MEDS ORDERED: Pantoprazole 40 mg EC Tab PO SCH (07:30)
== END 2017-10-08 16:55 | disposition home or self-care (01) ==
LOC: ED 19:39 → ERH 22:08 → 3RNO 23:30
PROVIDERS: ADMIT Internal Medicine; ATTEND Hospitalist
DX: I20.9 Angina pectoris, unspecified (principal); I12.9 Hypertensive chronic kidney disease with stage 1 through stage 4 chronic kidney disease, or unspecified chronic kidney disease; K21.9 Gastro-esophageal reflux disease without esophagitis; N18.9 Chronic kidney disease, unspecified; X50.9XXA Other and unspecified overexertion or strenuous movements or postures, initial encounter; Z79.82 Long term (current) use of aspirin; Z83.3 Family history of diabetes mellitus; Z87.442 Personal history of urinary calculi; Z87.891 Personal history of nicotine dependence
CPT/HCPCS: 36415; 71045; 78452; 80053; 80061; 81003; 82550; 83036; 83615; 83735; 84100; 84484; 85025; 85378; 85610; 85730; 93005; 93017; 99285; A9502; C9113; G0378; J1650